=== PATIENT | male | born 1980 | race Caucasian/White ===

== ENCOUNTER 2021-08-07 23:25 | Inpatient (IN) | payer OTHER ==
[~2021-08-07] VITALS: Ht 170.2 cm; Wt 77.1 kg
--- NOTE | 2021-08-07 23:40 | NUR ---
BRANDAN DAWSON EPIGASTRIC PAIN S/P EATING 1 WEEK OLD FRUIT TODAY AT 1400. PT HAS BEEN VOMITTING AFTER EATING THE FRUIT. PT A/OX4. TOLERATING R/A AT 99%. CONNECTED PT TO POX AND MONITOR
--- NOTE | 2021-08-07 23:53 | NUR ---
ENGINE TESTER AT PT'S BEDSIDE
[2021-08-08 00:09] LABS: BASOPHILS # (AUTO) 0.1 K/uL (0.0-0.2); BASOPHILS % (AUTO) 0.5 % (0.0-2.0); EOSINOPHILS % (AUTO) 0.1 % (0.0-6.0); HEMATOCRIT 51 % (39-51); HEMOGLOBIN 17.3 g/dL (13.5-17.5); LYMPHOCYTES # (AUTO) 1.4 K/uL (0.8-4.8); LYMPHOCYTES % (AUTO) 9.7 % (20.0-44.0); MEAN CORPUSCULAR HGB CONC 34 g/dl (31.0-36.0); MEAN CORPUSCULAR VOLUME 87 fL (80-96); MONOCYTES # (AUTO) 0.6 K/uL (0.1-1.30); MONOCYTES % (AUTO) 3.8 % (2.0-12.0); NEUTROPHILS # (AUTO) 12.8 K/uL (1.8-8.9); NEUTROPHILS % (AUTO) 85.9 % (43.0-81.0); PLATELET COUNT (AUTO) 381 K/uL (150-450); RED BLOOD CELL COUNT(AUTO) 5.83 MIL/uL (4.5-6.0); WHITE BLOOD COUNT (AUTO) 14.9 K/uL (4.3-11.0)
[2021-08-08] MEDS ORDERED: ONDANSETRON HCL/PF 4 MG/2 ML VIAL ONE (00:14)
[2021-08-08] MEDS ORDERED: MORPHINE SULFATE INJ 4 MG/ML DISP.SYRIN ONE ×2 (00:14→02:54)
[2021-08-08] MEDS ORDERED: FAMOTIDINE/PF INJ 20 MG/2 ML VIAL IV ONE ×2 (00:14→00:30)
[2021-08-08] MEDS ORDERED: ONDANSETRON HCL/PF - ER 4 MG/2 ML VIAL IV ONE (00:30)
[2021-08-08] MEDS ORDERED: MORPHINE SULFATE INJ 2 MG/ML DISP.SYRIN IV ONE ×2 (00:30→03:00)
[2021-08-08] MEDS ORDERED: IV LR 1000 ML 1,000 ML IV ONE (00:30)
--- NOTE | 2021-08-08 00:31 | NUR ---
RAC #18G S/L ; PATENT AND INTACT.
[2021-08-08 00:32] LABS: CALCIUM, SERUM 9.5 mg/dL (8.5-10.1); CARBON DIOXIDE 27 mmol/L (21-32); CHLORIDE 101 mmol/L (98-107); CREATININE 0.8 mg/dL (0.6-1.3); GLUCOSE 142 mg/dL (74-106); POTASSIUM 4.1 mmol/L (3.5-5.1); SODIUM SERUM 139 mmol/L (136-145); UREA NITROGEN, BLOOD 15 mg/dL (7-18)
[2021-08-08 00:39] LABS: ALANINE AMINOTRANSFERASE 545 U/L (12-78); ALBUMIN 4.1 g/dL (3.4-5.0); ALKALINE PHOSPHATASE 94 U/L (46-116); ASPARTATE AMINOTRANSFERASE 283 U/L (15-37); BILIRUBIN,DIRECT 0.3 mg/dL (0.0-0.2); TOTAL PROTEIN, SERUM 8.1 g/dL (6.4-8.2)
[2021-08-08] MEDS ORDERED: CT SWABBABLE VALVE TRANS SET 1 EA INFUS.SET MC ONE (00:43)
[2021-08-08] MEDS ORDERED: IV NS 0.9% 250 ML IV ONE (00:43)
[2021-08-08] MEDS ORDERED: IOHEXOL-300 100 ML VIAL IV ONE (00:43)
--- NOTE | 2021-08-08 00:47 | NUR ---
PT TAKEN TO CT VIA RA
[2021-08-08 01:07] LABS: LIPASE > 1500 U/L (73-393)
--- NOTE | 2021-08-08 02:48 | NUR ---
COVID ANTIGEN SWAB COLLECTED AND SENT TO LAB
[2021-08-08 02:58] LABS: BILIRUBIN,URINE NEGATIVE (NEGATIVE); COLOR,URINE YELLOW (YELLOW); LEUKOCYTE ESTERASE ,URINE NEGATIVE (NEGATIVE); NITRITE, URINE NEGATIVE (NEGATIVE); PH,URINE 6.5 (5.0-8.0); PROTEIN,URINE NEGATIVE (NEGATIVE); UGLUCOSE NEGATIVE (NEGATIVE); UROBILINOGEN,URINE 0.2 EU/dL (0.2)
[2021-08-08] MEDS ORDERED: ONDANSETRON HCL/PF 4 MG/2 ML VIAL IVP PRN (03:30)
--- NOTE | 2021-08-08 03:37 | NUR ---
US TECH AT PT'S BEDSIDE
--- NOTE | 2021-08-08 03:58 | NUR ---
MRSA SWAB COLLECTED AND SENT TO LAB. PATIENT'S BELONGINGS LIST DONE.
[2021-08-08] MEDS ORDERED: PIPERACILLIN /TAZOBACTAM 4.5 G in IV D5W 50 ML IV SCH ×2 (04:09→12:00)
--- NOTE | 2021-08-08 04:12 | NUR ---
REPORT GIVEN TO BEE Starr RN FOR [facility]
--- NOTE | 2021-08-08 04:28 | NUR ---
PT TRANSFERRED TO 3 VIA HOSPITAL PROTOCOL. VSS. ALL BELONGINGS WITH PT.
--- NOTE | 2021-08-08 04:30 | NUR ---
MS RN NOTES PT ARRIVED TO UNIT VIA GURNEY PT ABLE TO WALK TO BED NOTED WITH STEADY GAIT. PT A/0 X4 ABLE TO MAKE NEEDS KNOWN. NOTED WITH RAC 318G INTACT PATENT WILL START PT IN NS @150 ML/HR. PT TO REMAIN NPO FORT N/V NO REPORTS OF N/V AT THIS TIME. NO REPORTS OF PAIN AT THIS TIME. OM ROOM AIR TOLERATING WELL. NO RESPIRATORY DISTRESS NOTED OR REPORTED. CALL LIGHT WITHIN REACH. TABLE WITHIN REACH ALL NEEDS MET. ORIENTED TO ROOM AND UNIT. WILL CONTINUE TO MONITOR.
[2021-08-08 04:43] VITALS: BP 143/81
[2021-08-08] MEDS ORDERED: PIPERACILLIN /TAZOBACTAM 2.25 G VIAL IV ONE (04:50)
[2021-08-08] MEDS: MORPHINE SULFATE INJ 2 MG/ML DISP.SYRIN IV PRN ×4 (06:15→22:32)
--- NOTE | 2021-08-08 06:19 | NUR ---
MS RN NOTES PRN MORPHINE GIVEN FOR 7/10 PAIN TOLERATED WELL. WILL CONTINUE TO MONITOR.
--- NOTE | 2021-08-08 06:36 | NUR ---
MS CLOSING RN NOTES PT A/0 X4 ABLE TO MAKE NEEDS KNOWN. NOTED WITH RAC 318G INTACT PATENT PT ON NS @150 ML/HR. PT TO REMAIN NPO FORT N/V NO REPORTS OF N/V AT THIS TIME. NO REPORTS OF PAIN REPORTED PRN MORPHINE GIVEN AND TOLERATED WELL ON ROOM AIR TOLERATING WELL. NO RESPIRATORY DISTRESS NOTED OR REPORTED. ALL NNEEDS ANTICIPATED AND MET AT THIS TIME.CALL LIGHT WITHIN REACH. TABLE WITHIN REACH ALL NEEDS MET. ORIENTED TO ROOM AND UNIT. WILL ENDORSE CARE TO DAY SHIFT NURSE.
--- NOTE | 2021-08-08 07:50 | NUR ---
Patient has an order for nuclear medicine hepatobiliary imaging (HIDA scan), consent for the procedure obtained from patient, verbalized understanding of the procedure verbalized understanding and gratitude. Patient currently on NPO diet, denies any abdominal pain, no apparent distress notes, no s/s of hypo/hyperglycemia, no change in level of consciousness, no tremors, denies any pain or discomfort at this time. Consent for procedure signed by patient and are filed in patients chart.
--- NOTE | 2021-08-08 07:55 | NUR ---
RN OPENING NOTES Patient seen comfortably lying in bed, no shortness of breath, no apparent distress noted, breathing even and unlabored, and no grimacing. Call light left within reach, safety precautions in place, brakes locked, side rails up X 2, will monitor closely for any changes.
[2021-08-08 08:00] VITALS: BP 147/95
[2021-08-08] MEDS: PANTOPRAZOLE 40 MG VIAL IV SCH (08:29)
[2021-08-08] MEDS: ZOSYN IVPB 3.375 G in IV D5W 50ml IV SCH ×2 (13:37→18:39)
[2021-08-08 16:00] VITALS: BP 141/92
[2021-08-08] MEDS: IV NS 0.9% 1,000 ML IV PRN (17:18)
--- NOTE | 2021-08-08 17:35 | NUR ---
Patient left for HIDA scan around 1735pm, remained NPO, denies any abdominal pain at this time, no apparent distress notes, no s/s of hypo/hyperglycemia, no change in level of consciousness, no tremors, denies any pain or discomfort, consent for procedure present in patients chart. Patient not wearing any jewelry at this time.
--- NOTE | 2021-08-08 18:35 | NUR ---
Patient came back from HIDA scan around 1835pm, stable condition, no apparent distress noted, patient c/o abdominal and back discomfort NPI ineffective, pain medication will be administered per MD order, no shortness of breath, afebrile, no respiratory distress. Call light left within reach, will monitor closely for any changes.
--- NOTE | 2021-08-08 18:47 | NUR ---
NM:HIDA SCAN WAS COMPLETED. TECH:RB.
--- NOTE | 2021-08-08 19:55 | NUR ---
RN CLOSING NOTES Patient lying in bed, no apparent distress noted, no shortness of breath, breathing even and unlabored, no dizziness, no palpitations, no chest pain, remained afebril, no s/s of hypo or hyperglycemia, no tremors, no change in level of consciousness. All due medications given per MD order, tolerating well. Pain medication given per MD order as needed when NPI ineffective. Patient remained NPO and complained of abdominal discomfort throughout the shift, abdominal bowel sound present in all quadrants. Patient has an order for IV fluids (0.9NS at 150ml/hr), peripheral IV line on right antecubital, patent, flushing well, intact, covered with clean, intact and dry dressings and no swelling, no redness, no c/o pain or discomfort at site. Aspiration precautions observed at all times, kept head of bed elevated, all needs anticipated, kept clean and dry, patient repositioned frequently, safety precautions in place, frequent visual checks rendered, side rails up X 2, brakes locked, call light left within reach, will endorse to next shift for continuity of care.
[2021-08-09] MEDS: ZOSYN IVPB 3.375 G in IV D5W 50ml IV SCH ×4 (00:01→18:20)
[2021-08-09] MEDS: MORPHINE SULFATE INJ 2 MG/ML DISP.SYRIN IV PRN ×5 (02:52→21:47)
[2021-08-09] MEDS: IV NS 0.9% 1,000 ML IV PRN ×3 (03:42→19:06)
--- NOTE | 2021-08-09 04:55 | NUR ---
RN Closing NOTES: alert and orientated X4 medicated X2 with Morphine for abd pain and effective for relief ambulates to the bathroom steady on his legs NPO status skin intact
--- NOTE | 2021-08-09 07:25 | NUR ---
MS RN OPENING NOTES RECEIVED PT IN BED AWAKE. A/OX4. ABLE TO MAKE NEEDS KNOWN. ON RA, TOLERATING WELL. BREATHING EVEN AND UNLABORED. NOT IN ANY SIGN OF DISTRESS. RAC G #20 IV ACCESS INTACT WITH NS RUNNING AT 150 ML/HR. PATIENT ON NPO AT THIS TIME. SAFETY MEASURES IN PLACE: BED IN LOWEST AND LOCKED POSITION, SIDE RAILS UPX2, CALL LIGHT WITHIN EASY REACH. WILL CONTINUE TO MONITOR PT AND WITH PLAN OF CARE.
[2021-08-09 07:34] LABS: BASOPHILS % (AUTO) 0.2 % (0.0-2.0); EOSINOPHILS % (AUTO) 0.1 % (0.0-6.0); HEMATOCRIT 46 % (39-51); HEMOGLOBIN 15.5 g/dL (13.5-17.5); LYMPHOCYTES # (AUTO) 1.1 K/uL (0.8-4.8); LYMPHOCYTES % (AUTO) 5.2 % (20.0-44.0); MEAN CORPUSCULAR HGB CONC 34 g/dl (31.0-36.0); MEAN CORPUSCULAR VOLUME 87 fL (80-96); MONOCYTES # (AUTO) 1.3 K/uL (0.1-1.30); MONOCYTES % (AUTO) 6.4 % (2.0-12.0); NEUTROPHILS # (AUTO) 18.1 K/uL (1.8-8.9); NEUTROPHILS % (AUTO) 88.1 % (43.0-81.0); PLATELET COUNT (AUTO) 296 K/uL (150-450); RED BLOOD CELL COUNT(AUTO) 5.29 MIL/uL (4.5-6.0); WHITE BLOOD COUNT (AUTO) 20.5 K/uL (4.3-11.0)
[2021-08-09 08:09] LABS: ALBUMIN 3.3 g/dL (3.4-5.0); BILIRUBIN,TOTAL 1.8 mg/dL (0.2-1.0); CALCIUM, SERUM 8.8 mg/dL (8.5-10.1); CREATININE 0.7 mg/dL (0.6-1.3); MAGNESIUM 1.8 mg/dL (1.8-2.4); POTASSIUM 3.5 mmol/L (3.5-5.1); TOTAL PROTEIN, SERUM 7.6 g/dL (6.4-8.2)
[2021-08-09] MEDS: PANTOPRAZOLE 40 MG VIAL IV SCH (08:18)
--- NOTE | 2021-08-09 08:20 | NUR ---
RN NOTES PT COMPLAINED OF RIGHT SIDE ABDOMEN AND BACK WITH PAIN SCALE LEVEL OF 9/10. MORPHINE 2MG GIVEN ORDERED PRN. WILL MONITOR AND REASSESS PT.
--- NOTE | 2021-08-09 12:25 | NUR ---
PT COMPLAINED OF RIGHT AND LEFT SIDE THROBBING PAIN IN ABDOMEN AND BACK WITH PAIN SCALE LEVEL OF 8/10. MORPHINE 2MG GIVEN ORDERED PRN AT 1224. WILL MONITOR AND REASSESS PT.
[2021-08-09 16:00] VITALS: BP 145/91
--- NOTE | 2021-08-09 18:53 | NUR ---
MS RN CLOSING NOTES PT IN BED AWAKE AND WATCHING TV AT THIS TIME. A/OX4. ABLE TO MAKE NEEDS KNOWN. AMBULATORY WITH STEADY GAIT. PT TOLERATING ROOM AIR, BREATHING EVEN AND UNLABORED, NO SOB NOTED. IV ACCESS ON RAC G #20 INTACT WITH IVF OF NS RUNNING AT 150 ML/HR, NO S/S OF INFILTRATIONS NOTED. ALL NEEDS AND CARE ATTENDED WELL. SAFETY MEASURES KEPT IN PLACE: BED IN LOWEST AND LOCKED POSITION, SIDE RAILS UPX2, CALL LIGHT WITHIN EASY REACH. WILL ENDORSE [facility] TO DATA PROCESSING AUDITOR NURSE.
--- NOTE | 2021-08-09 19:05 | NUR ---
MS RN OPENING NOTES: RECEIVED PATIENT IN BED, AWAKE, A/O X4. NO S/S OF DISTRESS NOTED. NO COMPLAIN OF PAIN. CALL LIGHT WITHIN REACH. BED IN LOWEST AND LOCKED POSITION. NPO, PATIENT AWARE.
[2021-08-09 20:32] VITALS: BP 140/84
--- NOTE | 2021-08-09 22:00 | NUR ---
TEMP 99.7, PLACED ICE PACKS TO BOTH AXILLAE. WILL RECHECK THE TEMP.
[2021-08-10] MEDS: ZOSYN IVPB 3.375 G in IV D5W 50ml IV SCH ×5 (00:26→23:51)
[2021-08-10] MEDS: IV NS 0.9% 1,000 ML IV PRN ×3 (02:44→23:09)
[2021-08-10] MEDS: MORPHINE SULFATE INJ 2 MG/ML DISP.SYRIN IV PRN ×3 (02:58→23:54)
[2021-08-10 07:28] LABS: CALCIUM, SERUM 8.8 mg/dL (8.5-10.1); CREATININE 0.8 mg/dL (0.6-1.3); POTASSIUM 3.3 mmol/L (3.5-5.1)
--- NOTE | 2021-08-10 07:30 | NUR ---
MS RN OPENING NOTES RECEIVED PATIENT IN BED, AWAKE, A/O X4. ON RA WITH NO S/SX OF DISTRESS NOTED. NO COMPLAINT OF PAIN VERBALIZED AT THIS TIME. R HAND G#22 INTACT AND PATENT. SAFETY PRECAUTIONS IN PLACE: BED IN LOWEST POSITION, WHEELS LOCKED, SIDE RAILS UP X2, CALL LIGHT WITHIN REACH. WILL CONTINUE PLAN OF CARE
[2021-08-10 07:58] LABS: BASOPHILS % (AUTO) 0.1 % (0.0-2.0); EOSINOPHILS % (AUTO) 0.2 % (0.0-6.0); HEMATOCRIT 45 % (39-51); HEMOGLOBIN 15.1 g/dL (13.5-17.5); LYMPHOCYTES # (AUTO) 1.5 K/uL (0.8-4.8); LYMPHOCYTES % (AUTO) 9.8 % (20.0-44.0); MEAN CORPUSCULAR HGB CONC 34 g/dl (31.0-36.0); MEAN CORPUSCULAR VOLUME 87 fL (80-96); MONOCYTES # (AUTO) 1.4 K/uL (0.1-1.30); MONOCYTES % (AUTO) 8.6 % (2.0-12.0); NEUTROPHILS # (AUTO) 12.8 K/uL (1.8-8.9); NEUTROPHILS % (AUTO) 81.3 % (43.0-81.0); PLATELET COUNT (AUTO) 301 K/uL (150-450); RED BLOOD CELL COUNT(AUTO) 5.15 MIL/uL (4.5-6.0); WHITE BLOOD COUNT (AUTO) 15.7 K/uL (4.3-11.0)
[2021-08-10 08:58] VITALS: BP 135/88
[2021-08-10] MEDS: PANTOPRAZOLE 40 MG TABLET.DR PO SCH (09:39)
[2021-08-10] MEDS ORDERED: POTASSIUM CHLORIDE 20 MEQ TAB.PRT.SR PO SCH ×2 (10:00→11:30)
--- NOTE | 2021-08-10 18:53 | NUR ---
RN CLOSING NOTES PATIENT IN BED, NO CHANGES IN MENTATION THROUGH OUT SHIFT. ADVANCED TO CLEAR LIQUIDS AND TOLERATING WELL WITH NO C/O N/V OR ABDOMINAL PAIN. DIET CAN BE ADVANCED TOMORROW MORNING PER MD LEDESMA. ALL MEDS GIVEN ORDERED WITH FLUIDS RUNNING. PATIENT IS AMBULATING MORE FREQUENTLY WITH SUBSIDING PAIN. SAFETY MEASURES IN PLACE. WILL ENDORSE TO THE COLOR EXPERT NURSE FOR [facility]
--- NOTE | 2021-08-10 19:30 | NUR ---
MS RN OPENING NOTES RECEIVED PATIENT ON BED, AWAKE, ALERT, ORIENTED X4. BREATHING IS EVEN AND NONLABORED. IN NO ACUTE DISTRESS NOTED. ON ROOM AIR, WELL TOLERATED. COMPLAINED OF LOWER BACK PAIN WITH SCALE OF 8/10. WITH IV ACCESS ON RIGHT HAND G#22 INFUSING WITH NS 1L REGULATED AT 150ML/HR; INTACT AND PATENT. SAFETY PRECAUTIONS IMPLEMENTED: CALL ANDERSEN AND TABLE WITHIN EASY REACH, BED IN LOWEST LOCKED POSITION, SIDE RAILS UP X2. ABLE TO MAKE NEEDS KNOWN. WILL CONTINUE TO MONITOR
--- NOTE | 2021-08-10 19:55 | NUR ---
MS RN NOTES MORPHINE SULFATE 2MG/1ML GIVEN IVTT ORDERED PRN FOR PAIN WITH SCALE OF 8/1O AT 1946. WILL CONTINUE TO MONITOR
[2021-08-10 20:00] VITALS: BP 146/84
[2021-08-11] MEDS: ZOSYN IVPB 3.375 G in IV D5W 50ml IV SCH ×4 (06:06→23:31)
[2021-08-11 06:18] LABS: BASOPHILS % (AUTO) 0.3 % (0.0-2.0); EOSINOPHILS % (AUTO) 0.6 % (0.0-6.0); HEMATOCRIT 42 % (39-51); HEMOGLOBIN 14.3 g/dL (13.5-17.5); LYMPHOCYTES # (AUTO) 1.4 K/uL (0.8-4.8); MEAN CORPUSCULAR HGB CONC 34 g/dl (31.0-36.0); MEAN CORPUSCULAR VOLUME 86 fL (80-96); MONOCYTES # (AUTO) 1.2 K/uL (0.1-1.30); MONOCYTES % (AUTO) 9.1 % (2.0-12.0); NEUTROPHILS # (AUTO) 10.4 K/uL (1.8-8.9); PLATELET COUNT (AUTO) 305 K/uL (150-450); RED BLOOD CELL COUNT(AUTO) 4.89 MIL/uL (4.5-6.0); WHITE BLOOD COUNT (AUTO) 13.2 K/uL (4.3-11.0)
[2021-08-11 06:19] LABS: CALCIUM, SERUM 8.5 mg/dL (8.5-10.1); CREATININE 0.9 mg/dL (0.6-1.3); POTASSIUM 3.3 mmol/L (3.5-5.1)
[2021-08-11] MEDS: IV NS 0.9% 1,000 ML IV PRN ×2 (06:26→20:09)
--- NOTE | 2021-08-11 07:05 | NUR ---
MS RN CLOSING NOTES PATIENT IS AWAKE, ALERT AND ORIENTED X 4. BREATHING IS EVEN AND UNLABORED. NO SOB NOTED. IN NO ACUTE DISTRESS NOTED. DENIES ANY PAIN OR DISCOMFORT. SAFETY MEASURES IN PLACED. NEEDS ATTENDED TO. ENDORSED TO MORNING SHIFT FOR [facility].
--- NOTE | 2021-08-11 07:25 | NUR ---
RN OPENING NOTES RECEIVED PATIENT IN BED, AWAKE, A/O X4, VERBALLY RESPONSIVE, NO SIGNS OF ACUTE DISTRESS NOTED. STABLE ON ROOM AIR, NO SOB NOTED. BREATHING EVEN AND UNLABORED. NOTED WITH IV ACCESS ON RIGHT HAND #22G, INTACT AND PATENT WITH NS @150 ML/HR INFUSING WELL. NO C/O PAIN AT THIS TIME. SAFETY MEASURE IN PLACE. BED IN LOWEST AND LOCKED POSITION, SR UP, CALL LIGHT PLACED WITHIN EASY REACH. WILL CONTINUE TO MONITOR.
[2021-08-11 08:00] VITALS: BP 148/98
[2021-08-11] MEDS ORDERED: POTASSIUM CL. PREMIX PERIPHER. 50 ML IV SCH (08:00)
[2021-08-11] MEDS: PANTOPRAZOLE 40 MG TABLET.DR PO SCH (09:02)
[2021-08-11] MEDS: Potassium Chloride 10 MEQ, LIDOCAINE HCL/PF 1% 1 ML in IV D5W 50 ML IV SCH ×4 (09:03→12:09)
[2021-08-11 16:00] VITALS: BP 133/86
--- NOTE | 2021-08-11 18:42 | NUR ---
RN CLOSING NOTES PATIENT IN BED, AWAKE, A/O X4. NO SIGNS OF ACUTE DISTRESS NOTED. REMAINS STABLE ON ROOM AIR, NO SOB NOTED. BREATHING EVEN AND UNLABORED. IV ACCESS ON RIGHT HAND #22G, INTACT AND PATENT WITH NS @150 ML/HR INFUSING WELL. ALL DUE MEDS GIVEN. DIET ADVANCED TO FULL LIQUID, TOLERATING WELL. NO SIGNIFICANT EVENTS THIS SHIFT. SAFETY MEASURE IN PLACE. BED IN LOWEST AND LOCKED POSITION, SIDE RAILS UP X2, CALL LIGHT PLACED WITHIN EASY REACH. WILL ENDORSE TO NEXT SHIFT.
--- NOTE | 2021-08-11 19:40 | NUR ---
MS RN NOTES RECEIVED LAYING COMFORTABLY ON BED,BREATHING EVEN AND UNLABORED,PRESENT IVF NS INFUSING 150MG/HR ON LEFT HAND VIA IV PUMP,SITE PATENT.COMMENTED SLIGHT,TOLERABLE ABDOMINAL PAIN,CALL LIGHT IN REACH,NEEDS ANTICIPATED.
[2021-08-11 20:00] VITALS: BP 136/90
[2021-08-11] MEDS: MORPHINE SULFATE INJ 2 MG/ML DISP.SYRIN IV PRN (22:28)
--- NOTE | 2021-08-11 22:28 | NUR ---
MS RN NOTES PAIN MANAGEMENT COMMENTED HAVING ABDOMINAL PAIN 8/10 ON PAIN SCALE,MORPHINE 2MG IV GIVEN ORDERED FOR STRONG PAIN.VITAL SIGNS WITH IN NORMAL LIMITS.
[2021-08-12] MEDS: IV NS 0.9% 1,000 ML IV PRN (03:37)
[2021-08-12] MEDS: ZOSYN IVPB 3.375 G in IV D5W 50ml IV SCH (05:27)
--- NOTE | 2021-08-12 06:29 | NUR ---
MS RN NOTES LAYING ON BED,A/O X4,PAIN IMPROVED WITH MORPHINE,IVF IN PROGRESS,SITE REMAINS PATENT.IN NO ACUTE DISTRESS.
[2021-08-12 07:00] LABS: BASOPHILS % (AUTO) 0.2 % (0.0-2.0); EOSINOPHILS % (AUTO) 0.7 % (0.0-6.0); HEMATOCRIT 41 % (39-51); HEMOGLOBIN 14.3 g/dL (13.5-17.5); LYMPHOCYTES # (AUTO) 1.8 K/uL (0.8-4.8); MEAN CORPUSCULAR HGB CONC 35 g/dl (31.0-36.0); MEAN CORPUSCULAR VOLUME 86 fL (80-96); MONOCYTES # (AUTO) 1.2 K/uL (0.1-1.30); MONOCYTES % (AUTO) 10.6 % (2.0-12.0); NEUTROPHILS % (AUTO) 72.5 % (43.0-81.0); PLATELET COUNT (AUTO) 369 K/uL (150-450); RED BLOOD CELL COUNT(AUTO) 4.73 MIL/uL (4.5-6.0)
[2021-08-12 07:11] LABS: CALCIUM, SERUM 8.5 mg/dL (8.5-10.1); CREATININE 0.9 mg/dL (0.6-1.3); POTASSIUM 3.4 mmol/L (3.5-5.1)
[2021-08-12 08:00] VITALS: BP 128/93
[2021-08-12] MEDS ORDERED: POTASSIUM CHLORIDE 20 MEQ POWDER PACKET PO SCH (08:00)
--- NOTE | 2021-08-12 08:00 | NUR ---
RN OPENING NOTE PATIENT RECEIVED IN BED, AO X 4, ABLE TO RESPONDS ALL STIMULI. IN NO ACUTE DISTRESS NOTED. RESPIRATORY EVEN AND UNLABORED ON ROOM. SKIN IS WARM TO TOUCH, KEEP CLEAN/DRY, INTACT IV SITE. KEPT ELEVATED HOB FOR ENSURE AIRWAY AND ASPIRATION PRECAUTION, ALSO LOWEST POSITION OF THE BED, S/R UP X 2, ALL SAFETY PRECAUTION APPLIED. CALL LIGHT WITHIN REACH, WILL CONTINUE TO MONITOR.
[2021-08-12] MEDS ORDERED: POTASSIUM CHLORIDE 20 MEQ TAB.PRT.SR PO ONE (08:30)
[2021-08-12] MEDS: PANTOPRAZOLE 40 MG TABLET.DR PO SCH (09:12)
--- NOTE | 2021-08-12 09:12 | NUR ---
PATIENT HAS TOW POTASSIUM ORDERS: 20 MEQ AND 40 MEQ, CLARIFIED WITH PHARMACY AND WILL HOLD 20 MEQ.
--- NOTE | 2021-08-12 13:00 | NUR ---
PATIENT DISCHARGE TO HOME AND GIVEN DISCHARGE INSTRUCTION, IN NO ACUTE DISTRESS OBSERVED, IN STABLE CONDITION.
== END 2021-08-12 13:03 | disposition home or self-care (01) | DRG 440 ==
LOC: ER 23:25 → MED 08-08 03:59
PROVIDERS: ADMIT Family Medicine; ATTEND Family Medicine
DX: K85.10 Biliary acute pancreatitis without necrosis or infection (principal); N62 Hypertrophy of breast; E87.6 Hypokalemia; D72.829 Elevated white blood cell count, unspecified; K76.0 Fatty (change of) liver, not elsewhere classified; Z20.822 Contact with and (suspected) exposure to COVID-19; K82.4 Cholesterolosis of gallbladder; E80.6 Other disorders of bilirubin metabolism; R73.9 Hyperglycemia, unspecified; R74.01 Elevation of levels of liver transaminase levels; Z83.3 Family history of diabetes mellitus
CPT/HCPCS: 36415; 76705-TC; 78226; 80048-TC; 80053-TC; 80061-TC; 80076-TC; 83605-TC; 83690-TC; 83735-TC; 84100-TC; 85025-TC; 87081-TC; A9537; C9113; C9803; G0378; J2270; J2405; J2543; J3480; J3490; J7030; J7050; J7060; J7120; Q9967